=== PATIENT | female | born 1935 | race Caucasian/White ===

== ENCOUNTER 2021-02-11 19:55 | Emergency (ER) | payer MEDICARE, BC ==
[2021-02-11] MEDS ORDERED: Bacitracin Oint 1 GM U/D Packet TOP ONE (20:44)
--- NOTE | 2021-02-11 21:15 | EDM.PDOC ---
ED HPI GENERAL MEDICAL PROBLEM - General Chief Complaint: Laceration Stated Complaint: LEFT CALF CUT Time Seen by Provider: 02/11/21 20:37 Source of Information: Reports: Patient History Limitations: Reports: No Limitations - History of Present Illness INITIAL COMMENTS - FREE TEXT/NARRATIVE: Herminia is an 85-year-old female presenting to the ED for evaluation of a laceration to her left lower leg. The patient became injured when she was walking up the concrete steps to [place] 10 [place]. She tripped and fell into the next step causing a laceration on the anterior lower leg as well as the dorsal left elbow. She denies any other injuries. The family bandaged the leg. Bleeding was under control upon arrival. Patient is unclear of her tetanus status but she is returning to [facility] and would like to wait until she talks to her primary provider before getting a booster. - Related Data Allergies Allergy/AdvReac Type Severity Reaction Status Date / Time Penicillins Allergy Cannot Verified 02/11/21 20:25 Remember Home Meds: Home Meds . [Unable to Verify Home Med List] 02/11/21 [History] Past Medical History HEENT History: Reports: Impaired Vision [employer]ER History: Reports: Psychiatric History: Reports: Depression Endocrine/Metabolic History: Reports: Hypothyroidism Social & Family History - Tobacco Use Tobacco Use Status *Q: Never Tobacco User - Alcohol Use Days Per Week of Alcohol Use: 7 Number of Drinks Per Day: 2 Total Drinks Per Week: 14 - Recreational Drug Use Recreational Drug Use: No ED ROS GENERAL - Review of Systems Review Of Systems: See Below Constitutional: Reports: No Symptoms Musculoskeletal: Reports: Other (A 7 cm laceration superficially on the anterior left lower leg) Skin: Reports: Wound (A 7 cm superficial laceration on the anterior lower left leg and a 2 cm skin tear on the left elbow) ED EXAM, SKIN/RASH Exam: See Below Exam Limited By: No Limitations General Appearance: Alert, No Apparent Distress Extremities: Normal Range of Motion, Normal Capillary Refill, Other (Patient has a 7 cm skin tear on the anterior lower left leg. The bleeding is currently controlled. The wound does gap quite a bit. She also has a small avulsion skin tear over the left elbow measuring about 2 cm. There is no active bleeding there.) Neurological: Alert, Oriented, Normal Cognition, No Motor/Sensory Deficits ED SKIN PROCEDURES - Laceration/Wound Repair Left Lower Anterior Leg Appearance: Superficial Distal NVT: Neuro & Vascular Intact Anesthetic Type: Local Local Anesthesia - Lidocaine (Xylocaine): 1% Plain Local Anesthetic Volume: 5cc Skin Prep: Other (Soap and water) Exploration/Debridement/Repair: Wound Explored, In a Bloodless Field, Explored to Base Closed with: Sutures Lac/Wound length In cm: 7.0 Suture Size: 4-0 # of Sutures: 11 Suture Type: Nylon, Interrupted Sterile Dressing Applied: Provider Tetanus Status Addressed: Yes Course - Vital Signs Last Recorded V/S: Last Vital Signs Temp 36.2 C 02/11/21 20:26 Pulse 66 02/11/21 20:26 Resp 14 02/11/21 20:26 BP 134/72 02/11/21 20:26 Pulse Ox 96 02/11/21 20:26 - Orders/Labs/Meds Meds: Medications Discontinued Medications Generic Name Dose Route Start Last Admin Trade Name Altafq PRN Reason Stop Dose Admin Bacitracin 1 dose 02/11/21 20:44 02/11/21 20:50 Bacitracin Oint 1 Gm U/D Packet TOP 02/11/21 20:45 1 dose ONETIME ONE Administration Lidocaine HCl 5 ml 02/11/21 20:42 02/11/21 20:50 Lidocaine 1% 5 Ml Sdv INJECT 02/11/21 20:43 5 ml ONETIME ONE Administration Departure - Departure Time of Disposition: 21:11 Disposition: Home, Self-Care 01 Clinical Impression: Laceration of left leg Qualifiers: Encounter type: initial encounter Qualified Code(s): S81.812A - Laceration without foreign body, left lower leg, initial encounter Skin tear of left elbow without complication Qualifiers: Encounter type: initial encounter Qualified Code(s): S51.012A - Laceration without foreign body of left elbow, initial encounter - Discharge Information Instructions: Laceration Care, Adult, [id number] Referrals: PCP,None [Primary Care Provider] - Care Plan Goals: Please keep the dressing in place for the next 24 hours. Keep the wound clean and dry for the next 24 hours until the scab forms. You may experience a light amount of bleeding from the skin tear. Please keep the Tegaderm in place for t he next 2 to 3 days or until it falls off on its own. This is protecting the underlying skin behind the elbow skin tear. Please follow-up with your primary provider concerning your tetanus. The sutures will need to be removed in 7 to 10 days which can be done in [place] by your primary provider. Sepsis Event Note (ED) - Evaluation Sepsis Screening Result: No Definite Risk - Focused Exam Vital Signs: Vital Signs Temp Pulse Resp BP Pulse Ox 02/11/21 20:26 36.2 C 66 14 134/72 96 02/11/21 20:18 36.2 C 66 14 134/72 96 - Problem List & Annotations (1) Laceration of left leg SNOMED Code(s): 825905294, 73288689371261227 Code(s): S81.812A - LACERATION WITHOUT FOREIGN BODY, LEFT LOWER LEG, INIT ENCNTR Status: Acute Priority: Medium Current Visit: Yes Qualifiers: Encounter type: initial encounter Qualified Code(s): S81.812A - Laceration without foreign body, left lower leg, initial encounter (2) Skin tear of left elbow without complication SNOMED Code(s): 981080603, 943162993 Code(s): S51.012A - LACERATION WITHOUT FOREIGN BODY OF LEFT ELBOW, INIT ENCNTR Status: Acute Priority: Medium Current Visit: Yes Qualifiers: Encounter type: initial encounter Qualified Code(s): S51.012A - Laceration without foreign body of left elbow, initial encounter
== END 2021-02-11 21:26 | disposition home or self-care (01) ==
LOC: JP.ED 19:55
DX: S81.812A Laceration without foreign body, left lower leg, initial encounter (principal); Z88.0 Allergy status to penicillin; W26.8XXA Contact with other sharp object(s), not elsewhere classified, initial encounter
CPT/HCPCS: 12002; 99282-25

== ENCOUNTER 2023-11-23 17:09 | Emergency (ER) | payer MEDICARE, BC ==
[2023-11-23 17:53] LABS: BASOPHILS PERCENT AUTO 0.4 % (0.1-1.3); EOSINOPHILS ABSOLUTE AUTO 0.03 K/uL (0.00-0.40); EOSINOPHILS PERCENT AUTO 0.6 % (0.0-5.4); HEMATOCRIT 35.3 % (34.3-46.0); HEMOGLOBIN 11.2 g/dL (11.2-15.5); IMMATURE GRAN PERCENT AUTO 0.2 % (0.0-0.7); LYMPHOCYTES ABSOLUTE AUTO 0.91 K/uL (0.8-3.3); LYMPHOCYTES PERCENT AUTO 18.6 % (11.4-47.7); MEAN CORPUSCULAR HEMOGLOBIN 31.9 pg (31.6-35.5); MEAN CORPUSCULAR HGB CONC 31.7 g/dL (31.6-35.5); MEAN CORPUSCULAR VOLUME 100.6 fL (81.4-99.0); MONOCYTES ABSOLUTE AUTO 0.31 K/uL (0.20-0.90); MONOCYTES PERCENT AUTO 6.3 % (3.3-12.6); NEUTROPHILS ABSOLUTE AUTO 3.61 K/uL (1.0-7.6); NEUTROPHILS PERCENT AUTO 73.9 % (40.0-78.1); PLATELET COUNT,PLT 135 K/uL (130-375); RED BLOOD CELL COUNT 3.51 M/uL (3.77-5.24); WHITE BLOOD CELL COUNT,WBC 4.9 K/uL (3.2-11.0)
[2023-11-23 17:54] LABS: BASOPHILS ABSOLUTE AUTO 0.02 K/uL (0.00-0.10); IMMATURE GRAN ABSOLUTE AUTO 0.01 K/uL (0.00-0.23)
[2023-11-23] MEDS: Sodium Chloride 0.9% 1,000 ML IV ONE (18:03)
[2023-11-23 18:10] LABS: ANION GAP 8.9 mmol/L (5.0-14.0); C-REACTIVE PROTEIN 1.48 mg/dL (<0.50); CALCIUM 8.8 mg/dL (8.5-10.1); CREATININE 1.1 mg/dL (0.6-1.0); EST CRCL DRUG DOSING (CG) 27.35 mL/min; POTASSIUM,K 3.9 mmol/L (3.6-5.2)
[2023-11-23 18:42] LABS: BILIRUBIN,URINE SMALL (NEGATIVE); COLOR,URINE YELLOW (YELLOW); GLUCOSE,URINE NEGATIVE (NEGATIVE); KETONES,URINE NEGATIVE (NEGATIVE); LEUKOCYTE ESTERASE,URINE NEGATIVE (NEGATIVE); NITRITE,URINE NEGATIVE (NEGATIVE); OCCULT BLOOD,URINE NEGATIVE (NEGATIVE); PROTEIN,URINE 30 mg/dL (NEGATIVE)
[2023-11-23 18:56] LABS: AMORPHOUS SEDIMENT,URINE NOT SEEN; APPEARANCE,URINE SLIGHTLY CLOUDY (CLEAR); BACTERIA,URINE FEW; EPITHELIAL CELLS,URINE MODERATE; MUCUS,URINE MODERATE; RBC,URINE 0-5 (0-5)
[2023-11-23] MEDS: Acetaminophen 500 MG Tab PO ONE (19:15)
== END 2023-11-23 19:16 | disposition home or self-care (01) ==
LOC: JP.ED 17:09
DX: R40.0 Somnolence (principal); E03.9 Hypothyroidism, unspecified; Z90.710 Acquired absence of both cervix and uterus; Z79.890 Hormone replacement therapy; Z79.899 Other long term (current) drug therapy; Z88.0 Allergy status to penicillin
CPT/HCPCS: 36415; 80048; 81001; 83605; 85025; 86140; 87086; 96360; 99284-25; A9270-GY; J7030

== ENCOUNTER 2023-11-25 12:08 | Emergency (ER) | payer MEDICARE, BC | END 2023-11-25 13:41 | disposition left against medical advice (07) | LOC: JP.ED 12:08 | DX: Z53.21 Procedure and treatment not carried out due to patient leaving prior to being seen by health care provider (principal) ==